=== PATIENT | female | born 1950 | race Caucasian/White ===

== ENCOUNTER 2019-09-09 07:30 | Inpatient (IN) | payer MEDICARE, BC ==
[2019-08-27 11:44] LABS: BASOPHILS % (AUTO) 0.4 % (0-1); EOSINOPHILS # (AUTO) 0.2 X10'3 (0-0.9); EOSINOPHILS % (AUTO) 3.6 % (0-6); LYMPHOCYTES # (AUTO) 2.1 X10'3 (1.1-4.8); LYMPHOCYTES % (AUTO) 33.1 % (21-51); MEAN CORPUSCULAR HEMOGLOBIN 34.9 PG (27.0-31.0); MEAN CORPUSCULAR HGB CONC 34.2 g/dL (33.0-36.5); MEAN CORPUSCULAR VOLUME 102.2 FL (78-98); MEAN PLATELET VOLUME 7.8 FL (7.4-10.4); MONOCYTES # (AUTO) 0.4 X10'3 (0-0.9); MONOCYTES % (AUTO) 6.9 % (2-12); NEUTROPHILS # (AUTO) 3.6 X10'3 (1.8-7.7); PRE OP HEMATOCRIT 42.9 % (35.0-45.0); PRE OP HEMOGLOBIN 14.7 g/dL (12.0-16.0); PRE OP PLATELET COUNT 257 X10'3 (140-440)
[2019-08-27 11:55] LABS: PRE OP INR 0.9 INR
[2019-08-27 11:59] LABS: ALBUMIN 3.9 G/DL (3.4-5.0); ALKALINE PHOSPHATASE 129 IU/L (46-116); BLOOD UREA NITROGEN 23 MG/DL (7-18); BUN/CREATININE RATIO 29.5 (6.6-38.0); CALCIUM 9.2 MG/DL (8.5-10.1); CHLORIDE 104 MMOL/L (99-107); CREATININE 0.78 MG/DL (0.40-0.90); PRE OP ALT 18 U/L (30-65); PRE OP ANION GAP 8 (8-16); PRE OP AST 12 U/L (10-37); PRE OP BILIRUB, TOTAL 0.8 MG/DL (0.0-1.0); PRE OP GLUCOSE 101 MG/DL (70-104); PRE OP POTASSIUM 4.4 MMOL/L (3.4-5.1); PRE OP SODIUM 142 MMOL/L (135-145); TOTAL CARBON DIOXIDE 29.7 MMOL/L (24-32); TOTAL PROTEIN 7.8 G/DL (6.4-8.2); eGFR 73 ML/MIN
[2019-09-09] VITALS (16 sets, daily range): BP systolic 111–154; BP diastolic 56–89
[~2019-09-09] VITALS: Ht 167.6 cm; Wt 76.2 kg
[~2019-09-09 07:30] MED LIST: OXYB15TA18 PO; PARO25TA16 PO; VANCOMYCIN INJ 1000 MG in NORMAL SALINE 250ml IV.SOLN IV ONE; cefazolin/dext.iso 2gm/50ml 50 ML IV ONE; famotidine 20mg tablet PO ONE; ringers solution, lacted 1,000 ML IV SCH; tranexamic acid inj. 1,000 MG in normal saline 100 ML IV ONE
[2019-09-09] MEDS ORDERED: LIDOcaine 1% (10mg/ml) 2ml vial ONE (10:30)
[2019-09-09] MEDS ORDERED: ketorolac trometh. 30mg/ml inj. ONE (11:27)
[2019-09-09] MEDS ORDERED: ROPIVAcaine 0.5% (5mg/ml) 30ml vial ONE ×2 (11:27→15:52)
[2019-09-09] MEDS ORDERED: mineral oil 10ml sterile, topical TP ONE (11:27)
[2019-09-09] MEDS ORDERED: MIDAZolam 1mg/ml 10ml vial ONE (12:43)
[2019-09-09] MEDS ORDERED: fentaNYL/PF 50MCG/1 ML 2ML syringe ONE (12:43)
[2019-09-09] MEDS ORDERED: tetracaine 1% (10mg/ml) pres. free inj. ONE (12:43)
[2019-09-09] MEDS ORDERED: propofol inj 20 ML IV ONE ×2 (13:09)
[2019-09-09] MEDS ORDERED: ringers solution, lacted 1,000 ML IV SCH (13:47)
[2019-09-09] MEDS ORDERED: proCHLORperazine 10 MG/2 ml inj IV PRN (13:50)
[2019-09-09] MEDS ORDERED: meperidine/PF 25mg/ml syringe IV PRN ×3 (13:50)
[2019-09-09] MEDS ORDERED: morphine 4 MG/ML inj SYRINge IV PRN ×2 (13:50)
[2019-09-09] MEDS ORDERED: ondansetron/PF 4mg/2ml inj IV PRN ×2 (13:50→15:40)
[2019-09-09] MEDS ORDERED: diphenhydrAMINE 25mg capsule PO PRN ×2 (15:40)
[2019-09-09] MEDS ORDERED: acetaminophen 325mg tablet PO PRN ×2 (15:40→18:43)
[2019-09-09] MEDS ORDERED: magnesium hydroxide 30ml (MOM) UD suspension PO PRN (15:40)
[2019-09-09] MEDS ORDERED: HYDROmorphone 1 mg/ml syringe IV PRN (15:40)
[2019-09-09] MEDS ORDERED: bisacodyl 10mg suppository rectal RC PRN (15:40)
--- NOTE | 2019-09-09 16:00 | NUR ---
Received from OR via BED , accompanied by Anesthesiologist DR OWENS and report given by Anesthesiolgist. PATIENT WAKING UP, DENIES PAIN, V/S WNL, NEUROVASCULAR CHECKS INTACT, 18G PIV LUE , ADRIANO DRESSING TO LEFT KNEE CDI W/ COLD POWDER PACK AND W/ SCD ON, ON QUE BALL. F/C DRAINING CLEAR YELLOW URINE. SENSATION T-10 .
[2019-09-09] MEDS ORDERED: ROPIVAcaine 0.2%/PF PUMP/bolus 550 ML ADDCANAL SCH (16:30)
--- NOTE | 2019-09-09 17:00 | NUR ---
PATIENT A&OX4, DENIES PAIN, V/S WNL, NEUROVASCULAR CHECKS INTACT, 18G PIV LUE , ADRIANO DRESSING TO LEFT KNEE CDI W/ COLD POWDER PACK AND W/ SCD ON, ON QUE BALL. F/C DRAINING CLEAR YELLOW URINE. SENSATION T-10. . . PATIENT TAKEN TO 4024A WITH ALL BELONGINGS AND HOOKED UP TO MONITORS IN ROOM AND REPORT GIVEN TO INSPECTOR QUALITY ASSURANCE WHO HAS TAKEN OVER PATIENT CARE.
--- NOTE | 2019-09-09 18:15 | NUR ---
Problems reprioritized. Patient report given, questions answered & plan of care reviewed with Nakia EPPS.
[2019-09-09] MEDS ORDERED: OXYB10TA4 PO (18:42)
[2019-09-09] MEDS ORDERED: PARO20TA6 PO (18:44)
[2019-09-09] MEDS ORDERED: tranexamic acid inj. 800 MG in normal saline 100ml IV soln 100 ML IV ONE (19:00)
[2019-09-09] MEDS: ceFAZolin 1GM/D5W- ADD-VANTAGE 50 ML IV SCH (19:39)
[2019-09-09] MEDS: oxybutynin 5mg tablet PO SCH (19:42)
[2019-09-09] MEDS: potassium cl 20mEq in 1/2 NS 1,000 ML IV SCH (19:42)
[2019-09-09] MEDS ORDERED: vancomycin/NS 1 GM ADD-VANTAGE 250 ML IV SCH (20:00)
[2019-09-09] MEDS: sennosides 8.6mg tablet PO SCH (20:53)
[2019-09-09] MEDS: acetaminophen 325mg tablet PO SCH (20:54)
[2019-09-10] MEDS: ceFAZolin 1GM/D5W- ADD-VANTAGE 50 ML IV SCH (00:57)
[2019-09-10] MEDS: potassium cl 20mEq in 1/2 NS 1,000 ML IV SCH ×4 (00:59→23:38)
[2019-09-10 02:00] VITALS: BP 120/63
[2019-09-10] MEDS: acetaminophen 325mg tablet PO SCH ×4 (02:00→19:38)
[2019-09-10 06:00] VITALS: BP 138/112
[2019-09-10 06:20] LABS: BASOPHILS % (AUTO) 0.3 % (0-1); EOSINOPHILS # (AUTO) 0.1 X10'3 (0-0.9); EOSINOPHILS % (AUTO) 1.9 % (0-6); HEMATOCRIT 34.5 % (35.0-45.0); HEMOGLOBIN 11.8 g/dl (12.0-16.0); LYMPHOCYTES # (AUTO) 1.1 X10'3 (1.1-4.8); LYMPHOCYTES % (AUTO) 17.3 % (21-51); MEAN CORPUSCULAR HEMOGLOBIN 35.1 PG (27.0-31.0); MEAN CORPUSCULAR HGB CONC 34.3 g/dL (33.0-36.5); MEAN CORPUSCULAR VOLUME 102.2 FL (78-98); MEAN PLATELET VOLUME 7.8 FL (7.4-10.4); MONOCYTES # (AUTO) 0.6 X10'3 (0-0.9); MONOCYTES % (AUTO) 9.7 % (2-12); NEUTROPHILS # (AUTO) 4.4 X10'3 (1.8-7.7); NEUTROPHILS % (AUTO) 70.8 % (42-75); PLATELET COUNT 220 X10'3 (140-440); RED BLOOD COUNT 3.37 X10'6 (4.20-5.60); RED CELL DISTRIBUTION WIDTH 12.7 % (11.5-14.5); WHITE BLOOD COUNT 6.2 X10'3 (4.5-11.0)
--- NOTE | 2019-09-10 06:20 | NUR ---
Patient in room ORTHO 4024. I have received report from Nakia and had the opportunity to ask questions and assume patient care.
--- NOTE | 2019-09-10 06:23 | NUR ---
REPORT GIVEN TO SUPRIYA QIU.
[2019-09-10 06:28] LABS: ANION GAP 8 (8-16); CHLORIDE 104 MMOL/L (99-107); SODIUM 140 MMOL/L (135-145); TOTAL CARBON DIOXIDE 28.2 MMOL/L (24-32)
[2019-09-10] MEDS ORDERED: PARoxetine 20mg tablet PO SCH (08:00)
[2019-09-10] MEDS ORDERED: non-formulary drug (Oxybutynin Chloride (Ditropan Xl) 1 TAB) PO SCH (08:00)
[2019-09-10] MEDS ORDERED: oxybutynin 5mg tablet PO SCH (08:00)
[2019-09-10] MEDS: oxybutynin 5mg tablet PO SCH ×2 (08:20→19:38)
[2019-09-10] MEDS: PARoxetine 20mg tablet PO SCH (08:20)
[2019-09-10] MEDS: aspirin 325mg tablet PO SCH (08:22)
[2019-09-10] MEDS: oxyCODONE IR 5mg (immed. release) tablet PO PRN ×4 (09:06→23:22)
[2019-09-10 10:00] VITALS: BP 127/71
--- NOTE | 2019-09-10 11:55 | NUR ---
Student documentation: I have reviewed all interventions, assessments performed and documented by Sunday MCCLELLAN [facility]. Student Medication Administration: For this medication-pass time frame, all medication were reviewed, dispensed, administered and documented per hospital policy by Sunday Smith [facility].
[2019-09-10 14:00] VITALS: BP 153/75
--- NOTE | 2019-09-10 14:02 | NUR ---
Joint replacement consult: Pt seen by OMAR for written/verbal high protein ed w/ RD contact information provided. Pt requests salsa on eggs; dietary notified. Pt drinks ONS at home and declines ONS this admit. Addendum: 09/10/19 at [address] Amended: Links added.
--- NOTE | 2019-09-10 18:09 | NUR ---
Problems reprioritized. Patient report given, questions answered & plan of care reviewed with Nakia.
[2019-09-10 18:45] VITALS: BP 116/64
--- NOTE | 2019-09-10 19:07 | NUR ---
REPORT REC'D FROM SUPRIYA QIU.
[2019-09-10] MEDS: celeCOXIB 100mg capsule PO SCH (19:38)
[2019-09-10] MEDS: sennosides 8.6mg tablet PO SCH (20:20)
[2019-09-10 22:00] VITALS: BP 123/63
[2019-09-11] MEDS: acetaminophen 325mg tablet PO SCH ×2 (01:49→08:17)
[2019-09-11] MEDS: oxyCODONE IR 5mg (immed. release) tablet PO PRN ×2 (03:50→08:18)
[2019-09-11 06:00] VITALS: BP 152/78
--- NOTE | 2019-09-11 06:11 | NUR ---
REPORT GIVEN TO SUPRIYA QIU.
--- NOTE | 2019-09-11 06:15 | NUR ---
Patient in room ORTHO 4024. I have received report from Nakia and had the opportunity to ask questions and assume patient care.
[2019-09-11 06:34] LABS: BASOPHILS % (AUTO) 0.2 % (0-1); EOSINOPHILS # (AUTO) 0.4 X10'3 (0-0.9); EOSINOPHILS % (AUTO) 4.6 % (0-6); HEMATOCRIT 33.1 % (35.0-45.0); HEMOGLOBIN 11.5 g/dl (12.0-16.0); LYMPHOCYTES # (AUTO) 0.9 X10'3 (1.1-4.8); LYMPHOCYTES % (AUTO) 10.6 % (21-51); MEAN CORPUSCULAR HEMOGLOBIN 35.5 PG (27.0-31.0); MEAN CORPUSCULAR HGB CONC 34.7 g/dL (33.0-36.5); MEAN CORPUSCULAR VOLUME 102.1 FL (78-98); MEAN PLATELET VOLUME 7.8 FL (7.4-10.4); MONOCYTES # (AUTO) 0.9 X10'3 (0-0.9); MONOCYTES % (AUTO) 11.4 % (2-12); NEUTROPHILS # (AUTO) 6.1 X10'3 (1.8-7.7); NEUTROPHILS % (AUTO) 73.2 % (42-75); PLATELET COUNT 203 X10'3 (140-440); RED BLOOD COUNT 3.24 X10'6 (4.20-5.60); RED CELL DISTRIBUTION WIDTH 13.1 % (11.5-14.5); WHITE BLOOD COUNT 8.3 X10'3 (4.5-11.0)
[2019-09-11] MEDS ORDERED: ASPI-1 PO (07:22)
[2019-09-11] MEDS: potassium cl 20mEq in 1/2 NS 1,000 ML IV SCH (07:38)
[2019-09-11] MEDS: celeCOXIB 100mg capsule PO SCH (08:15)
[2019-09-11] MEDS: oxybutynin 5mg tablet PO SCH (08:15)
[2019-09-11] MEDS: PARoxetine 20mg tablet PO SCH (08:16)
[2019-09-11] MEDS: aspirin 325mg tablet PO SCH (08:17)
--- NOTE | 2019-09-11 09:06 | NUR ---
DC PIV, intact cath
--- NOTE | 2019-09-11 12:00 | NUR ---
Problems reprioritized. Patient report given, questions answered & plan of care reviewed with Marjorie EPPS.
--- NOTE | 2019-09-11 12:20 | NUR ---
Reviewed discharge instructions with pt. Pt verbalized understanding. All of pt's belongings were returned to pt. Pt does not have c/o discomfort. Pt is alert, oriented and in good spirits. Pt was wheeled downstairs to be driven home by her .
[2019-09-11] MEDS ORDERED: acetaminophen 325mg tablet PO PRN (15:40)
== END 2019-09-11 12:05 | disposition home or self-care (01) | DRG 470 ==
LOC: EDSTATUS 07:30 → PAS IN 09:08 → ORTHO 4S 17:13
PROVIDERS: ADMIT Orthopaedic Surgery; ATTEND Orthopaedic Surgery
PROC: 8E0YXBZ Computer Assisted Procedure of Lower Extremity (ICD-10-PCS; 2019-09-09)
PROC: 3E0T3BZ Introduction of Anesthetic Agent into Peripheral Nerves and Plexi, Percutaneous Approach (ICD-10-PCS; 2019-09-09)
PROC: 0SRD0J9 Replacement of Left Knee Joint with Synthetic Substitute, Cemented, Open Approach (ICD-10-PCS; principal; 2019-09-09 12:38)
DX: M17.12 Unilateral primary osteoarthritis, left knee (principal); D62 Acute posthemorrhagic anemia; F32.9 Major depressive disorder, single episode, unspecified
CPT/HCPCS: 36415; 80051; 80053; 82948; 85025; 85610; 85730; 87081; 97110; 97116; 97162; 97530; A4215; A6454; A7000; C1713; C1758; C1776; G0378; J0690; J1885; J2001; J2250; J2704; J2795; J3010; J3370; J3480; J7120

== ENCOUNTER 2020-01-06 06:30 | Observation (INO) | payer MEDICARE, BC ==
[2019-12-29 15:59] LABS: BASOPHILS % (AUTO) 0.4 % (0-1); EOSINOPHILS # (AUTO) 0.2 X10'3 (0-0.9); EOSINOPHILS % (AUTO) 3.6 % (0-6); LYMPHOCYTES # (AUTO) 2.4 X10'3 (1.1-4.8); LYMPHOCYTES % (AUTO) 37.7 % (21-51); MEAN CORPUSCULAR HEMOGLOBIN 33.8 PG (27.0-31.0); MEAN CORPUSCULAR HGB CONC 34.3 g/dL (33.0-36.5); MEAN CORPUSCULAR VOLUME 98.4 FL (78-98); MEAN PLATELET VOLUME 8.1 FL (7.4-10.4); MONOCYTES # (AUTO) 0.5 X10'3 (0-0.9); MONOCYTES % (AUTO) 7.9 % (2-12); NEUTROPHILS # (AUTO) 3.2 X10'3 (1.8-7.7); NEUTROPHILS % (AUTO) 50.4 % (42-75); PRE OP HEMATOCRIT 42.7 % (35.0-45.0); PRE OP HEMOGLOBIN 14.7 g/dL (12.0-16.0); PRE OP PLATELET COUNT 267 X10'3 (140-440); RED BLOOD COUNT 4.34 X10'6 (4.20-5.60); RED CELL DISTRIBUTION WIDTH 13.8 % (11.5-14.5)
[2019-12-29 16:09] LABS: ALBUMIN 4.1 G/DL (3.4-5.0); ALBUMIN/GLOBULIN RATIO 1.1 (1.1-1.5); ALKALINE PHOSPHATASE 139 IU/L (46-116); BLOOD UREA NITROGEN 13 MG/DL (7-18); BUN/CREATININE RATIO 16.9 (6.6-38.0); CALCIUM 9.6 MG/DL (8.5-10.1); CHLORIDE 104 MMOL/L (99-107); CREATININE 0.77 MG/DL (0.40-0.90); PRE OP ALT 17 U/L (30-65); PRE OP ANION GAP 6 (8-16); PRE OP AST 15 U/L (10-37); PRE OP BILIRUB, TOTAL 0.8 MG/DL (0.0-1.0); PRE OP GLUCOSE 94 MG/DL (70-104); PRE OP POTASSIUM 4.1 MMOL/L (3.4-5.1); PRE OP SODIUM 142 MMOL/L (135-145); TOTAL CARBON DIOXIDE 31.9 MMOL/L (24-32); TOTAL PROTEIN 7.8 G/DL (6.4-8.2); eGFR 74 ML/MIN
[2020-01-06] VITALS (17 sets, daily range): BP systolic 84–131; BP diastolic 37–78
[~2020-01-06] VITALS: Ht 167.6 cm; Wt 76.9 kg
[~2020-01-06 06:30] MED LIST changes: +OXYB10TA4 PO; -OXYB15TA18 PO; +PARO20TA6 PO; -PARO25TA16 PO; -VANCOMYCIN INJ 1000 MG in NORMAL SALINE 250ml IV.SOLN IV ONE; +cefazolin/dext.iso 2gm/100ml 100 ML IV ONE; -cefazolin/dext.iso 2gm/50ml 50 ML IV ONE; -tranexamic acid inj. 1,000 MG in normal saline 100 ML IV ONE; +tranexamic acid inj. 750 MG in normal saline 100ml IV soln 100 ML IV ONE; +vancomycin 1500mg/300ml PREMIX 500 ML IV ONE
[2020-01-06] MEDS ORDERED: tetracaine 1% (10mg/ml) pres. free inj. ONE (07:56)
[2020-01-06] MEDS ORDERED: ROPIVAcaine 0.5% (5mg/ml) 30ml vial ONE (09:03)
[2020-01-06] MEDS ORDERED: ketorolac trometh. 30mg/ml inj. ONE (09:03)
[2020-01-06] MEDS ORDERED: MIDAZolam 1mg/ml 10ml vial ONE ×2 (09:20→11:14)
[2020-01-06] MEDS ORDERED: morphine /PF 1mg/ml 10ml inj. ONE (09:20)
[2020-01-06] MEDS ORDERED: ePHEDrine 50MG/ML INJ. ONE (09:47)
[2020-01-06] MEDS ORDERED: labetalol 20mg/4ml (5mg/ml) syringe IV PRN (09:55)
[2020-01-06] MEDS ORDERED: morphine 4 MG/ML inj SYRINge IV PRN ×2 (09:55)
[2020-01-06] MEDS ORDERED: morphine 2 MG/ML inj. syringe IV PRN ×2 (09:55)
[2020-01-06] MEDS ORDERED: ROPIVAcaine 0.2%/PF PUMP/bolus 550 ML ADDCANAL SCH (09:55)
[2020-01-06] MEDS ORDERED: ondansetron/PF 4mg/2ml inj IV PRN ×3 (09:55→12:25)
[2020-01-06] MEDS ORDERED: hydrALAZINE 20mg/ml inj. IV PRN (09:55)
[2020-01-06] MEDS ORDERED: ringers solution, lacted 1,000 ML IV SCH (09:55)
[2020-01-06] MEDS ORDERED: ROPIVAcaine 0.2% (10 MG/5 ML) BOLUS INJECTION ADDCANAL PRN (09:55)
[2020-01-06] MEDS ORDERED: diphenhydrAMINE 50 mg/ml inj IV PRN (10:00)
[2020-01-06] MEDS ORDERED: HYDROcodone/acetaminophen 10/325mg tab PO PRN (12:25)
[2020-01-06] MEDS ORDERED: HYDROmorphone inj. 0.5 MG/0.5 ML DISP.SYRIN IV PRN (12:25)
[2020-01-06] MEDS ORDERED: acetaminophen 325mg tablet PO PRN (12:25)
[2020-01-06] MEDS ORDERED: oxyCODONE IR 5mg (immed. release) tablet PO PRN (12:25)
[2020-01-06] MEDS ORDERED: magnesium hydroxide 30ml (MOM) UD suspension PO PRN (12:25)
[2020-01-06] MEDS ORDERED: HYDROmorphone 1 mg/ml syringe IV PRN (12:25)
[2020-01-06] MEDS ORDERED: bisacodyl 10mg suppository rectal RC PRN (12:25)
[2020-01-06] MEDS ORDERED: diphenhydrAMINE 25mg capsule PO PRN ×2 (12:25)
--- NOTE | 2020-01-06 12:31 | NUR ---
TRANSFERRED FROM OR VIA BED WITH OHTF, ACCOMPANIED BY ANESTHESIA DR HOPE, REPORT GIVEN. PT AWAKE AND ALERT, VSS, NO COMPLAINT OF PAIN AT THIS TIME. SPINAL SENSATION AT UMBILICUS, PEDAL PULSES PRESENT, GOOD CAP REFILL, SKIN PINK AND WARM, ABD SOFT. 20 G PIV LFA PATENT AND RUNNING LR AT 100 ML/HR. ADRIANO DRESSING CDI WITH KNEE WRAP AND POWDER PACK APPLIED. ADDUCTOR CANAL BLOCK CATHETER PRESENT.F/C DRAINING CLEAR YELLOW URINE.
--- NOTE | 2020-01-06 13:21 | NUR ---
DISCHARGE CRITERIA MET.TRANSFERRED TO ORTHO FLOOR VIA BED WITH OHTF, BED DOWN, RAILS UP, REPORT GIVEN. PT AWAKE AND ALERT, VSS, NO COMPLAINT OF PAIN AT THIS TIME. SPINAL SENSATION AT UMBILICUS, PEDAL PULSES PRESENT, GOOD CAP REFILL, SKIN PINK AND WARM, ABD SOFT. 20 G PIV LFA PATENT AND RUNNING LR AT 100 ML/HR. ADRIANO DRESSING CDI WITH KNEE WRAP AND POWDER PACK APPLIED. ADDUCTOR CANAL BLOCK CATHETER PRESENT.F/C DRAINING CLEAR YELLOW URINE.
[2020-01-06] MEDS ORDERED: tranexamic acid inj. 770 MG in normal saline 100ml IV soln 100 ML IV ONE (15:00)
[2020-01-06] MEDS: acetaminophen 325mg tablet PO SCH ×2 (15:33→20:35)
[2020-01-06] MEDS ORDERED: ceFAZolin 1GM/D5W- ADD-VANTAGE 50 ML IV SCH (16:00)
[2020-01-06] MEDS: ceFAZolin/D5W- 1GM premix 50 ML IV SCH (16:35)
[2020-01-06] MEDS: potassium cl 20mEq in 1/2 NS 1,000 ML IV SCH ×2 (17:42→20:22)
--- NOTE | 2020-01-06 18:30 | NUR ---
Patient in room ORTHO 4012. I have received report from SUPRIYA ARRIAZA and had the opportunity to ask questions and assume patient care.
--- NOTE | 2020-01-06 18:32 | NUR ---
Problems reprioritized. Patient report given, questions answered & plan of care reviewed with SUPRIYA SO.
[2020-01-06] MEDS ORDERED: vancomycin/NS 1 GM ADD-VANTAGE 250 ML IV SCH (20:00)
[2020-01-06] MEDS ORDERED: sennosides 8.6mg tablet PO SCH (21:00)
[2020-01-07] MEDS: ceFAZolin/D5W- 1GM premix 50 ML IV SCH (00:10)
[2020-01-07 02:00] VITALS: BP 103/46
[2020-01-07] MEDS: acetaminophen 325mg tablet PO SCH ×2 (03:09→07:34)
[2020-01-07] MEDS: potassium cl 20mEq in 1/2 NS 1,000 ML IV SCH (03:10)
[2020-01-07] MEDS: oxyCODONE IR 5mg (immed. release) tablet PO PRN ×2 (05:09→12:33)
[2020-01-07 06:01] VITALS: BP 94/48
[2020-01-07 06:19] LABS: ANION GAP 5 (8-16); CHLORIDE 107 MMOL/L (99-107); POTASSIUM 4.3 MMOL/L (3.5-5.1); SODIUM 140 MMOL/L (135-145); TOTAL CARBON DIOXIDE 28.2 MMOL/L (24-32)
[2020-01-07 06:20] LABS: BASOPHILS % (AUTO) 0.3 % (0-1); EOSINOPHILS # (AUTO) 0.2 X10'3 (0-0.9); EOSINOPHILS % (AUTO) 2.8 % (0-6); HEMATOCRIT 32.4 % (35.0-45.0); HEMOGLOBIN 11.1 g/dl (12.0-16.0); LYMPHOCYTES # (AUTO) 1.4 X10'3 (1.1-4.8); LYMPHOCYTES % (AUTO) 18.7 % (21-51); MEAN CORPUSCULAR HEMOGLOBIN 33.6 PG (27.0-31.0); MEAN CORPUSCULAR HGB CONC 34.3 g/dL (33.0-36.5); MEAN PLATELET VOLUME 7.7 FL (7.4-10.4); MONOCYTES # (AUTO) 0.8 X10'3 (0-0.9); MONOCYTES % (AUTO) 11.4 % (2-12); NEUTROPHILS # (AUTO) 4.8 X10'3 (1.8-7.7); NEUTROPHILS % (AUTO) 66.8 % (42-75); PLATELET COUNT 207 X10'3 (140-440); RED CELL DISTRIBUTION WIDTH 13.6 % (11.5-14.5); WHITE BLOOD COUNT 7.3 X10'3 (4.5-11.0)
--- NOTE | 2020-01-07 06:33 | NUR ---
Problems reprioritized. Patient report given, questions answered & plan of care reviewed with SUPRIYA ARRIAZA.
--- NOTE | 2020-01-07 06:35 | NUR ---
Patient in room ORTHO 4012B. I have received report from SUPRIYA SO and had the opportunity to ask questions and assume patient care.
[2020-01-07] MEDS ORDERED: oxybutynin 5mg tablet PO SCH (08:00)
[2020-01-07] MEDS ORDERED: PARoxetine 20mg tablet PO SCH (08:00)
[2020-01-07] MEDS ORDERED: aspirin 325mg tablet PO SCH (08:30)
[2020-01-07 10:00] VITALS: BP 92/52
--- NOTE | 2020-01-07 14:19 | NUR ---
DC INSTRUCTIONS GIVEN TO PT, PT HAD OPPORTUNITY TO ASK QUESTIONS. IV REMOVED, PT TOLERATED WELL NO PROBLEMS. PT WHEELED DOWN BY AIDE IN STABLE CONDITION TO IN PRIVATE VEHICLE.
[2020-01-08] MEDS ORDERED: acetaminophen 325mg tablet PO PRN (12:25)
--- NOTE | 2020-01-08 16:34 | NUR ---
Case Management DC follow up: spoke to pt via telephone. Reports "getting better, first night was painful". Compliant w/aftercare RTKA. no s/s infection noted, no redness, swelling to R leg. Denies CP, emergent general pain, SOB, respiratory distress, NV, dizziness, syncope episodes, abd pain, MENDEZ, blurry vision. Verbalizes understanding of medications and why prescribed. Taking as ordered, no ase noted r/t polypharmacy/new meds. verbalizes understanding of s/s that would warrant 9-11/ER visit for evaluation. Acknowledges importance of scheduling/keeping appointments w/PCP/Harshil, will call to schedule follow up/referrals/specialists/[place] 01/19/2020. Needs met, questions answered at DC. No further questions at this time.
== END 2020-01-07 14:16 | disposition home or self-care (01) ==
LOC: UNDOADMIN 06:30 → PAS IN 06:30 → EDSTATUS 09:30 → PAS IN 12:22 → INTOOBSV 12:22 → PAS IN 13:30 → ORTHO 4S 13:30
PROVIDERS: ADMIT Orthopaedic Surgery; ATTEND Orthopaedic Surgery
DX: M17.11 Unilateral primary osteoarthritis, right knee (principal); M25.561 Pain in right knee; F41.8 Other specified anxiety disorders; Z01.810 Encounter for preprocedural cardiovascular examination; R39.15 Urgency of urination; D62 Acute posthemorrhagic anemia; K21.9 Gastro-esophageal reflux disease without esophagitis
CPT/HCPCS: 20985; 27447; 36415; 64447; 76942; 80051; 80053; 82948; 85025; 87081; 93005; 96365; 96366; 96367; 97110; 97116; 97161; 97530; A6454; C1713; C1758; C1776; G0378; J0690; J1885; J2250; J2270; J2795; J3370; J7120; A4215; A7000; J3480; J7040